=== PATIENT | female | born 2000 | race Caucasian/White ===

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

== ENCOUNTER 2019-11-12 21:27 | Emergency (ER) | payer MEDICAID, SELFPAY ==
[~2019-11-12] VITALS: Ht 160 cm; Wt 47.2 kg
[2019-11-12 22:22] VITALS: Ht 160 cm; Wt 47.2 kg
[2019-11-13 00:55] VITALS: BP 103/53
== END 2019-11-13 01:03 | disposition home or self-care (01) ==
LOC: ED 21:27
DX: G44.209 Tension-type headache, unspecified, not intractable (principal); Z20.828 Contact with and (suspected) exposure to other viral communicable diseases
CPT/HCPCS: J1885; U0003-CS